=== PATIENT | male | born 1965 | race American Indian/Alaskan Native ===

== ENCOUNTER 2017-01-04 10:08 | Inpatient (IN) | payer BC, OTHER ==
[2017-01-04 11:43] LABS: Hematocrit 36.5 % (35.5-45.6); Hemoglobin 12.3 gm/dl (11.8-15.2); Mean Corpuscular HGB Conc 34 % (32-34); Mean Corpuscular Hemoglobin 31 pg (28-32); Mean Corpuscular Volume 92 fl (84-94); Platelet Count 112 K/mm3 (140-440); Red Blood Count 3.95 M/mm3 (3.65-5.03); Red Cell Distribution Width 14.7 % (13.2-15.2); White Blood Count 2.6 K/mm3 (4.5-11.0)
[2017-01-04 12:03] LABS: Anion Gap 15 mmol/L; Blood Urea Nitrogen 11 mg/dL (9-20); Carbon Dioxide 25 mmol/L (22-30); Chloride 101.8 mmol/L (98-107); Glucose 261 mg/dL (75-100); Potassium 4.6 mmol/L (3.6-5.0); Sodium 137 mmol/L (137-145)
--- NOTE | 2017-01-04 12:56 | Emergency Department Report ---
ED General Adult HPI - General Chief complaint: Weakness Stated complaint: AMS Time Seen by Provider: 01/04/17 12:54 Source: family, EMS Mode of arrival: Stretcher Limitations: No Limitations - History of Present Illness Initial comments: Patient presents to the emergency department with vague complaints. He states he was seen in [place] and told he was cirrhotic and admitted to the hospital there. It appears that the patient does have alcoholic cirrhosis. He states that he is weak and that he has lost weight over the last year perhaps 30 pounds. He does not report any recent signs of GI bleeding. He denies fever or chills. He does not complain of nausea. He is here with his who states that he was told that he had something in the back of his brain on a CAT scan. He does admit to continued alcohol abuse stating "I like my Chika". -: Gradual, month(s) Severity scale (0 -10): 0 Improves with: none Worsens with: none Associated Symptoms: weakness Treatments Prior to Arrival: none - Related Data Allergies Allergy/AdvReac Type Severity Reaction Status Date / Time No Known Allergies Allergy Unverified 01/04/17 11:10 ED Review of Systems ROS: Stated complaint: AMS Other details as noted in HPI Constitutional: weakness. denies: chills, fever Eyes: denies: eye pain, eye discharge, vision change ENT: denies: ear pain, throat pain Respiratory: denies: cough, shortness of breath, wheezing Cardiovascular: denies: chest pain, palpitations Endocrine: no symptoms reported Gastrointestinal: denies: abdominal pain, nausea, diarrhea Genitourinary: denies: urgency, dysuria Musculoskeletal: denies: back pain, joint swelling, arthralgia Skin: denies: rash, lesions Neurological: denies: headache, weakness, paresthesias Psychiatric: denies: anxiety, depression Hematological/Lymphatic: denies: easy bleeding, easy bruising ED Past Medical Hx - Past Medical History Previous Medical History?: Yes Hx Diabetes: Yes - Surgical History Past Surgical History?: No - Social History Smoking Status: Current Some Day Smoker Substance Use Type: Alcohol ED Physical Exam - General Limitations: No Limitations General appearance: alert, in no apparent distress - Head Head exam: Present: atraumatic, normocephalic - Eye Eye exam: Present: normal appearance, PERRL, EOMI. Absent: scleral icterus - ENT ENT exam: Present: normal exam, mucous membranes moist - Neck Neck exam: Present: normal inspection. Absent: tenderness, meningismus - Respiratory Respiratory exam: Present: normal lung sounds bilaterally. Absent: respiratory distress - Cardiovascular Cardiovascular Exam: Present: regular rate, normal rhythm. Absent: systolic murmur, diastolic murmur, rubs, gallop - GI/Abdominal GI/Abdominal exam: Present: soft, normal bowel sounds. Absent: distended, tenderness, guarding, rebound, rigid - Rectal Rectal exam: Present: deferred - Extremities Exam Extremities exam: Present: normal inspection - Back Exam Back exam: Present: normal inspection - Neurological Exam Neurological exam: Present: alert, oriented X3, CN II-XII intact, other (no nystagmus cerebellar testing was adequate. Generalized weakness. No drift.). Absent: motor sensory deficit - Psychiatric Psychiatric exam: Present: anxious, flat affect - Skin Skin exam: Present: warm, dry, intact, normal color. Absent: rash ED Course Vital Signs 01/04/17 01/04/17 01/04/17 10:53 11:00 11:01 Temperature 97.6 F Pulse Rate 102 H Respiratory 18 Rate Blood Pressure 100/72 132/93 Blood Pressure 132/93 [Left] O2 Sat by Pulse 100 99 100 Oximetry 01/04/17 11:09 Temperature Pulse Rate 99 H Respiratory Rate Blood Pressure Blood Pressure [Left] O2 Sat by Pulse Oximetry - Reevaluation(s) Reevaluation #1: And "banana bag" was ordered. Magnesium replacement. Case was referred to the hospitalist service for further care and evaluation. The patient is neutropenic but there is no source of infection found or any fever or signs of systemic immune response. Antibiotics are withheld at this point. 01/04/17 15:23 ED Medical Decision Making - Lab Data Result diagrams: 01/04/17 11:28 01/04/17 11:28 Laboratory Results - last 24 hr 01/04/17 01/04/17 11:28 11:28 WBC 2.6 L RBC 3.95 Hgb 12.3 Hct 36.5 MCV 92 MCH 31 MCHC 34 RDW 14.7 Plt Count 112 L Lymph % (Auto) Missile Pad Mechanic Seg Neutrophils % Missile Pad Mechanic Sodium 137 Potassium 4.6 Chloride 101.8 Carbon Dioxide 25 Anion Gap 15 BUN 11 Creatinine 0.5 L Estimated GFR > 60 BUN/Creatinine Ratio 22.00 Glucose 261 H Calcium 8.0 L - Radiology Data Radiology results: report reviewed interpreted by me: Chest X ray no acute process. CT the head process. Critical care attestation.: If time is entered above; I have spent that time in minutes in the direct care of this critically ill patient, excluding procedure time. ED Disposition Clinical Impression: Hyperglycemia due to type 1 diabetes mellitus, Thrombocytopenia, Hypomagnesemia Neutropenia Qualifiers: Neutropenia type: unspecified Qualified Code(s): D70.9 - Neutropenia, unspecified Cirrhosis Qualifiers: Hepatic cirrhosis type: alcoholic cirrhosis Ascites presence: without ascites Qualified Code(s): K70.30 - Alcoholic cirrhosis of liver without ascites Disposition: OP ADMITTED IP TO THIS HOSP Is pt being admited?: Yes Does the pt Need Aspirin: No (risk of bleeding) Condition: Stable Instructions: Diabetes Mellitus Type 2 in Adults (ED) Referrals: PRIMARY CARE, [Primary Care Provider] - 3-5 Days Time of Disposition: 15:27
[2017-01-04 13:34] LABS: Basophils % (Manual) 0 % (0.0-1.8); Blastocytes % (Manual) 0 %
[2017-01-04 13:37] LABS: Platelet Estimate Appears Decreased; Schistocytes Rare
[2017-01-04 13:40] LABS: Diff Status Complete
--- NOTE | 2017-01-04 13:47 | XRay Report ---
PORTABLE CHEST: An AP portable view of the chest demonstrates a normal cardiac contour considering the limits of this technique. The lungs are clear with no evidence of infiltrate, fluid or failure. IMPRESSION: Normal portable chest.
[2017-01-04 13:57] LABS: Creatine Kinase MB 1.9 ng/mL (0.0-4.0); INR 1.14 (0.87-1.13); Partial Thromboplastin Time 27.7 Sec. (24.2-36.6)
[2017-01-04 13:59] LABS: Alanine Aminotransferase 50 units/L (7-56); Albumin 3.7 g/dL (3.9-5); Alkaline Phosphatase 209 units/L (35-129); Bilirubin,Total 0.5 mg/dL (0.1-1.2); Lipase 13 units/L (13-60); Magnesium 1.6 mg/dL (1.7-2.3); Total Protein 7.3 g/dL (6.3-8.2)
[2017-01-04] MEDS ORDERED: VITAMIN B-1 100 MG, FOLVITE 1 MG, INFUVITE 10 ML in NACL 0.9% 1000 ML 1,000 ML IV ONE (14:00)
[2017-01-04 14:16] LABS: Bilirubin,Direct < 0.2 mg/dL (0-0.2)
--- NOTE | 2017-01-04 14:24 | Cat Scan Report ---
CT HEAD WITHOUT CONTRAST INDICATION: Altered mental status. COMPARISON: None similar. FINDINGS: Noncontrast head CT demonstrates symmetric, age-appropriate ventricles and sulci without acute or recent infarct, hemorrhage, mass effect or midline shift. Minimal, benign bilateral basal ganglia calcifications. No abnormal extra-axial fluid collections. Posterior fossa structures and basilar cisterns appear within normal limits. Some streak artifact from left earring. Symmetric eye globes. Clear paranasal sinuses and mastoid air cells. Intact calvarium. Normal overlying scalp soft tissues. Mild atherosclerotic internal carotid artery calcifications. CONCLUSION: No acute intracranial CT abnormality, as described. Thank you for the opportunity to participate in this patient's care.
[2017-01-04] MEDS ORDERED: MAGNESIUM SULFATE 2GM/50ML 2 GM/50 ML BAG IV ONE (15:22)
--- NOTE | 2017-01-04 15:46 | Admit Criteria Form ---
Admission Criteria Documentation: LIVER DISEASE COMPLICATIONS Clinical Indications for Admission to Inpatient Care (Place 'X' for any and all applicable criteria): Admission is indicated for patient with ANY ONE of the following(1)(2)(3)(4): [X]I. Inpatient admission required rather than observation care because of ANY ONE of the following: [ ]a) Hemodynamic instability that is severe or persistent [ ]b) Severe electrolyte abnormalities requiring inpatient care [ ]c) Respiratory compromise that is severe or persistent [ ]d) Coagulation abnormal that is severe or persistent [ ]e) Severe pain requiring acute inpatient management [ ]f) Renal insufficiency that is severe or worsening [ ]g) Metabolic abnormalities (e.g., vomiting, hypoglycemia, acidosis) that are severe or persistent [ ]h) Hypovolemia or hypervolemia that is severe or persistent [ ]i) Absent bowel sounds with complete ileus(2) [ ]j) Signs of intestinal obstruction or peritonitis[A] [ ]k) IV fluid to replace significant ongoing losses (>3 L/m2 per day) [ ]l) Continuous IV infusion of anticoagulation, platelet inhibitor, vasoactive, or antiarrhythmic medication [ ]m) Percutaneous or open drainage (e.g., abscess, biliary tract) procedures [ ]n) Parenteral nutrition regimen that must be implemented on inpatient basis [X]o) Other condition treatment or monitoring requiring inpatient admission [ ]II. Infected hepatic hydrothorax (eg, empyema) [ ]III. Hepatorenal syndrome (eg, elevated. creatinine with adequate volume status and negative evaluation for other cause)(8) [ ]IV. Spontaneous bacterial peritonitis [ ]V. Suspected infected ascites as indicated by ANY ONE of the following: [ ]a) Temp >100 degrees F (37.8 C ) [ ]b) High WBC count [ ]c) Abdominal pain or tenderness not relieved by paracentesis [ ]. New-onset or worsening hepatic encephalopathy(7) [ ]VII. Suspected fulminant hepatic failure (e.g., acute coagulopathy with hepatic encephalopathy or acute elevation of hepatic transaminases to more than 15 times baseline)(4) [ ]VIII. Acute hepatitis (e.g., ALT and AST at least 3 times baseline) with coagulopathy or severe jaundice as indicated by ANY ONE of the following(9)(10): [ ]a) Bilirubin >20 mg/dL (342 moles/L)(11) [ ]b) Acute elevation of PT to >50% above normal or INR >1.5 [ ] IX. Treatment of injury from hepatotoxin (e.g., acetaminophen) that requires inpatient monitoring [ ] X. Acute fatty liver of Extended stay beyond goal length of stay may be needed for(3)(7): [ ]a) Hepatorenal syndrome [ ]b) Severe or persistent hepatic encephalopathy [ ]c) Renal failure due to other causes associated with cirrhosis (e.g., hypovolemia) [ ]d) Severe or persistent coagulation abnormalities [ ]e) Refractory ascites, volume, or electrolyte abnormality [ ]f) Severe or persistent gastroesophageal bleeding [ ]g) Severe infectious or hepatotoxin-induced hepatitis (eg, acetaminophen) [ ]h) Hemodynamic instability that is severe or persistent The original [facility] content created by [employer] has been revised. The portions of the content which have been revised are identified through the use of italic text or in bold, and [facility] has neither reviewed nor approved the modified material. All other unmodified content is copyright [facility]. Please see references footnoted in the original [facility] [facility] Admission Criteria Met: Yes
[2017-01-04] MEDS ORDERED: NACL 0.9% 1000 ML 1,000 ML ONE (20:04)
[2017-01-04] MEDS ORDERED: NACL 0.9% 1000 ML 1,000 ML IV ONE (20:19)
[2017-01-04] MEDS ORDERED: AMBIEN PO PRN (21:02)
[2017-01-04] MEDS ORDERED: TYLENOL PO PRN (21:02)
[2017-01-04] MEDS ORDERED: MILK OF MAGNESIA PO PRN (21:02)
[2017-01-04] MEDS ORDERED: DULCOLAX PR PRN (21:02)
[2017-01-04] MEDS ORDERED: ZOFRAN IV PRN (21:02)
[2017-01-04] MEDS ORDERED: DILAUDID IV PRN (21:02)
--- NOTE | 2017-01-04 21:02 | History and Physical Report ---
History of Present Illness Date of examination: 01/04/17 Date of admission: 01/04/17 Chief complaint: Gen weakness 1 week History of present illness: Patient presents to the emergency department with vague complaints. He states he was seen in [place] and told he was cirrhotic and admitted to the hospital there. It appears that the patient does have alcoholic cirrhosis. He states that he is weak and that he has lost weight over the last year perhaps 30 pounds. He does not report any recent signs of GI bleeding. He denies fever or chills. He does not complain of nausea. He is here with his who states that he was told that he had something in the back of his brain on a CAT scan. He does admit to continued alcohol abuse stating "I like my Chardonnay". Past History Past Medical History: diabetes, hypertension Past Surgical History: No surgical history Social history: smoking, alcohol abuse (Bottle of Chardonnay) Medications and Allergies Allergies Allergy/AdvReac Type Severity Reaction Status Date / Time No Known Allergies Allergy Verified 01/04/17 15:56 Home Medications Medication Instructions Recorded Confirmed Last Taken Type Unobtainable 01/04/17 01/04/17 Unknown History Active Meds: Active Medications Sodium Chloride (Nacl 0.9% 1000 Ml) 1,000 mls @ 999 mls/hr IV BOLUS ONE Stop: 01/04/17 21:19 Last Admin: 01/04/17 20:29 Dose: 999 mls/hr Review of Systems Constitutional: no weight loss, no weight gain Ears, nose, mouth and throat: no ear pain, no ear discharge, no tinnitis, no decreased hearing, no nose pain Cardiovascular: no chest pain, no orthopnea, no palpitations, no rapid/ irregular heart beat, no edema, no syncope, no lightheadedness, no shortness of breath Respiratory: no dyspnea on exertion, no congestion Gastrointestinal: nausea, no abdominal pain, no vomiting, no diarrhea, no constipation, no change in bowel habits, no hematemesis, no coffee ground emesis Genitourinary Male: no dysuria, no hematuria, no flank pain, no discharge, no urinary frequency, no urinary hesitancy, no nocturia, no incontinence, no erectile dysfunction, no genital pain Musculoskeletal: no neck stiffness, no neck pain Integumentary: no rash, no pruritis, no redness, no sores, no wounds, no jaundice, no boils, no blisters Neurological: no seizures, no syncope Psychiatric: anxiety, depression Endocrine: no cold intolerance, no heat intolerance, no polyphagia, no excessive thirst, no polydipsia, no polyuria, no nocturia Hematologic/Lymphatic: no easy bruising, no easy bleeding Allergic/Immunologic: no urticaria, no allergic rhinitis, no wheezing Exam - Constitutional Vitals: Temp Pulse Resp BP Pulse Ox 97.6 F 78 14 116/74 99 01/04/17 11:01 01/04/17 19:45 01/04/17 19:45 01/04/17 19:45 01/04/17 19:45 General appearance: Present: no acute distress, well-nourished - EENT Eyes: Present: PERRL ENT: hearing intact, clear oral mucosa - Neck Neck: Present: supple, normal ROM - Respiratory Respiratory effort: normal Respiratory: bilateral: CTA - Cardiovascular Rhythm: regular Heart Sounds: Present: S1 & S2. Absent: rub, click - Extremities Extremities: pulses symmetrical, No edema Peripheral Pulses: within normal limits - Abdominal General gastrointestinal: Present: soft, non-tender, non-distended, normal bowel sounds Male genitourinary: Present: normal - Integumentary Integumentary: Present: clear, warm, dry - Musculoskeletal Musculoskeletal: gait normal, strength equal bilaterally - Psychiatric Psychiatric: appropriate mood/affect, intact judgment & insight - Neurologic Neurologic: CNII-XII intact, moves all extremities - Allied Health Allied health notes reviewed: nursing, case management Results - Labs CBC & Chem 7: 01/05/17 06:58 01/05/17 06:58 Labs: Laboratory Last Values WBC 2.6 K/mm3 (4.5-11.0) L 01/04/17 11:28 RBC 3.95 M/mm3 (3.65-5.03) 01/04/17 11:28 Hgb 12.3 gm/dl (11.8-15.2) 01/04/17 11:28 Hct 36.5 % (35.5-45.6) 01/04/17 11:28 MCV 92 fl (84-94) 01/04/17 11:28 MCH 31 pg (28-32) 01/04/17 11:28 MCHC 34 % (32-34) 01/04/17 11:28 RDW 14.7 % (13.2-15.2) 01/04/17 11:28 Plt Count 112 K/mm3 (140-440) L 01/04/17 11:28 Lymph % (Auto) Dross Puller 01/04/17 11:28 Add Manual Diff Complete 01/04/17 11:28 Total Counted 50 01/04/17 11:28 Seg Neutrophils % Dross Puller 01/04/17 11:28 Seg Neuts % (Manual) 24.0 % (40.0-70.0) L 01/04/17 11:28 Band Neutrophils % 0 % 01/04/17 11:28 Lymphocytes % (Manual) 64.0 % (13.4-35.0) H 01/04/17 11:28 Reactive Lymphs % (Man) 0 % 01/04/17 11:28 Monocytes % (Manual) 10.0 % (0.0-7.3) H 01/04/17 11:28 Eosinophils % (Manual) 2.0 % (0.0-4.3) 01/04/17 11:28 Basophils % (Manual) 0 % (0.0-1.8) 01/04/17 11:28 Metamyelocytes % 0 % 01/04/17 11:28 Myelocytes % 0 % 01/04/17 11:28 Promyelocytes % 0 % 01/04/17 11:28 Blast Cells % 0 % 01/04/17 11:28 Nucleated RBC % Not Reportable 01/04/17 11:28 Seg Neutrophils # Man 0.6 K/mm3 (1.8-7.7) L 01/04/17 11:28 Band Neutrophils # 0.0 K/mm3 01/04/17 11:28 Lymphocytes # (Manual) 1.7 K/mm3 (1.2-5.4) 01/04/17 11:28 Abs React Lymphs (Man) 0.0 K/mm3 01/04/17 11:28 Monocytes # (Manual) 0.3 K/mm3 (0.0-0.8) 01/04/17 11:28 Eosinophils # (Manual) 0.1 K/mm3 (0.0-0.4) 01/04/17 11:28 Basophils # (Manual) 0.0 K/mm3 (0.0-0.1) 01/04/17 11:28 Metamyelocytes # 0.0 K/mm3 01/04/17 11:28 Myelocytes # 0.0 K/mm3 01/04/17 11:28 Promyelocytes # 0.0 K/mm3 01/04/17 11:28 Blast Cells # 0.0 K/mm3 01/04/17 11:28 Pathologist Review 01/04/17 11:28 WBC Morphology Not Reportable 01/04/17 11:28 Hypersegmented Neuts Not Reportable 01/04/17 11:28 Hyposegmented Neuts Not Reportable 01/04/17 11:28 Hypogranular Neuts Not Reportable 01/04/17 11:28 Smudge Cells Dross Puller 01/04/17 11:28 Toxic Granulation Not Reportable 01/04/17 11:28 Toxic Vacuolation Not Reportable 01/04/17 11:28 Dohle Bodies Not Reportable 01/04/17 11:28 Pelger-Huet Anomaly Not Reportable 01/04/17 11:28 Jaxson Rods Not Reportable 01/04/17 11:28 Platelet Estimate Appears decreased 01/04/17 11:28 Clumped Platelets Not Reportable 01/04/17 11:28 Plt Clumps, EDTA Not Reportable 01/04/17 11:28 Large Platelets Not Reportable 01/04/17 11:28 Giant Platelets Not Reportable 01/04/17 11:28 Platelet Satelliting Not Reportable 01/04/17 11:28 Plt Morphology Comment Not Reportable 01/04/17 11:28 RBC Morphology Not Reportable 01/04/17 11:28 Dimorphic RBCs Not Reportable 01/04/17 11:28 Polychromasia Not Reportable 01/04/17 11:28 Hypochromasia Not Reportable 01/04/17 11:28 Poikilocytosis Dross Puller 01/04/17 11:28 Anisocytosis Not Reportable 01/04/17 11:28 Microcytosis Not Reportable 01/04/17 11:28 Macrocytosis Not Reportable 01/04/17 11:28 Spherocytes Not Reportable 01/04/17 11:28 Pappenheimer Bodies Not Reportable 01/04/17 11:28 Sickle Cells Not Reportable 01/04/17 11:28 Target Cells Dross Puller 01/04/17 11:28 Tear Drop Cells Not Reportable 01/04/17 11:28 Ovalocytes Not Reportable 01/04/17 11:28 Helmet Cells Not Reportable 01/04/17 11:28 [place] Bodies Not Reportable 01/04/17 11:28 [place] Rings Not Reportable 01/04/17 11:28 [place] Cells Not Reportable 01/04/17 11:28 Bite Cells Not Reportable 01/04/17 11:28 Crenated Cell Not Reportable 01/04/17 11:28 Elliptocytes Not Reportable 01/04/17 11:28 Acanthocytes (Spur) Not Reportable 01/04/17 11:28 Rouleaux Not Reportable 01/04/17 11:28 Hemoglobin C Crystals Not Reportable 01/04/17 11:28 Schistocytes Rare 01/04/17 11:28 Malaria parasites Not Reportable 01/04/17 11:28 Dioni Bodies Not Reportable 01/04/17 11:28 Hem Pathologist Commnt Sent to pathology 01/04/17 11:28 PT 14.5 Sec. (12.2-14.9) 01/04/17 13:20 INR 1.14 (0.87-1.13) H 01/04/17 13:20 APTT 27.7 Sec. (24.2-36.6) 01/04/17 13:20 Sodium 137 mmol/L (137-145) 01/04/17 11:28 Potassium 4.6 mmol/L (3.6-5.0) 01/04/17 11:28 Chloride 101.8 mmol/L (98-107) 01/04/17 11:28 Carbon Dioxide 25 mmol/L (22-30) 01/04/17 11:28 Anion Gap 15 mmol/L 01/04/17 11:28 BUN 11 mg/dL (9-20) 01/04/17 11:28 Creatinine 0.5 mg/dL (0.8-1.5) L 01/04/17 11:28 Estimated GFR > 60 ml/min 01/04/17 11:28 BUN/Creatinine Ratio 22.00 % 01/04/17 11:28 Glucose 261 mg/dL (75-100) H 01/04/17 11:28 POC Glucose > 500 (70-105) H 01/04/17 20:02 Lactic Acid 1.3 mmol/L (0.7-2.0) 01/04/17 13:20 Calcium 8.0 mg/dL (8.4-10.2) L 01/04/17 11:28 Magnesium 1.6 mg/dL (1.7-2.3) L 01/04/17 13:20 Total Bilirubin 0.5 mg/dL (0.1-1.2) 01/04/17 13:20 Direct Bilirubin < 0.2 mg/dL (0-0.2) 01/04/17 13:20 AST 54 units/L (5-40) H 01/04/17 13:20 ALT 50 units/L (7-56) 01/04/17 13:20 Alkaline Phosphatase 209 units/L (35-129) H 01/04/17 13:20 Ammonia 40.0 umol/L (25-60) 01/04/17 13:20 Total Creatine Kinase 65 units/L (55-170) 01/04/17 13:20 CK-MB (CK-2) 1.9 ng/mL (0.0-4.0) 01/04/17 13:20 CK-MB (CK-2) Rel Index 2.9 (0-4) 01/04/17 13:20 NT-Pro-B Natriuret Pep 49.71 pg/mL (0-900) 01/04/17 13:20 Total Protein 7.3 g/dL (6.3-8.2) 01/04/17 13:20 Albumin 3.7 g/dL (3.9-5) L 01/04/17 13:20 Albumin/Globulin Ratio 1.0 % 01/04/17 13:20 Lipase 13 units/L (13-60) 01/04/17 13:20 Plasma/Serum Alcohol 0.33 gm% (0-0.07) H 01/04/17 13:20 Short CBC 01/05/17 Range/Units 06:58 WBC 2.9 L (4.5-11.0) K/mm3 Hgb 10.7 L (11.8-15.2) gm/dl Hct 32.3 L (35.5-45.6) % Plt Count 103 L (140-440) K/mm3 BMP 01/05/17 06:58 Sodium 138 Potassium 3.5 L D Chloride 100.5 Carbon Dioxide 22 BUN 11 Creatinine 0.4 L Glucose 217 H Calcium 7.7 L Cardiac Enzymes 01/04/17 Range/Units 13:20 Total Creatine Kinase 65 (55-170) units/L CK-MB (CK-2) 1.9 (0.0-4.0) ng/mL Liver Function 01/04/17 01/05/17 Range/Units 13:20 06:58 Total Bilirubin 0.5 0.4 (0.1-1.2) mg/dL Direct Bilirubin < 0.2 (0-0.2) mg/dL AST 54 H 68 H (5-40) units/L ALT 50 44 (7-56) units/L Alkaline Phosphatase 209 H 160 H (35-129) units/L Albumin 3.7 L 3.0 L (3.9-5) g/dL Assessment and Plan Advance Directives: Yes (Full code) VTE prophylaxis?: Chemical Plan of care discussed with patient/family: Yes - Patient Problems (1) Pancytopenia Current Visit: Yes Status: Acute Plan to address problem: Sec to Etoh dependence (2) EtOH dependence Current Visit: Yes Status: Chronic Qualifiers: Substance use status: with intoxication Complication of substance-induced condition: C Plan to address problem: CIWA protocol and iv fluids (3) New onset type 2 diabetes mellitus Current Visit: Yes Status: Acute Plan to address problem: Start on Glimepride 1 mg po qd Diabetes education (4) Transaminitis Current Visit: Yes Status: Acute Plan to address problem: Sec to EToh Needs Detox consult requested (5) DVT prophylaxis Current Visit: Yes Status: Acute Plan to address problem: on Lovenox
[2017-01-04] MEDS ORDERED: ATIVAN PO PRN ×2 (21:09)
[2017-01-04] MEDS ORDERED: LIBRIUM PO PRN (21:09)
[2017-01-04] MEDS ORDERED: ATIVAN IV PRN ×3 (21:09)
[2017-01-04] MEDS ORDERED: HALDOL IV PRN (21:09)
[2017-01-04] MEDS ORDERED: 1: FOLVITE 1 MG, INFUVITE 10 ML, VITAMIN B-1 100 MG in NACL 0.9% 1000 ML 988.8 ML 2: NA IV SCH (22:00)
[2017-01-04] MEDS ORDERED: LEVEMIR SUB-Q SCH (23:00)
[2017-01-04] MEDS: VITAMIN B-1 100 MG, FOLVITE 1 MG, INFUVITE 10 ML in NACL 0.9% 1000 ML 1,000 ML IV SCH (23:41)
[2017-01-04] MEDS: NOVOLOG SUB-Q SCH ×2 (23:44→23:45)
[2017-01-05 00:08] LABS: Magnesium 1.9 mg/dL (1.7-2.3); Phosphorous 2.8 mg/dL (2.5-4.5)
[2017-01-05] MEDS ORDERED: D50W (25GM) IV ONE (06:46)
[2017-01-05] MEDS: NOVOLOG SUB-Q SCH ×6 (07:30→16:45)
[2017-01-05 07:38] LABS: Basophils % (Auto) 0.6 % (0.0-1.8); Eosinophils % (Auto) 0.3 % (0.0-4.3); Hematocrit 32.3 % (35.5-45.6); Hemoglobin 10.7 gm/dl (11.8-15.2); Mean Corpuscular HGB Conc 33 % (32-34); Mean Corpuscular Hemoglobin 31 pg (28-32); Mean Corpuscular Volume 93 fl (84-94); Platelet Count 103 K/mm3 (140-440); Red Blood Count 3.45 M/mm3 (3.65-5.03); Red Cell Distribution Width 14.7 % (13.2-15.2); White Blood Count 2.9 K/mm3 (4.5-11.0)
[2017-01-05 07:42] LABS: Alanine Aminotransferase 44 units/L (7-56); Alkaline Phosphatase 160 units/L (35-129); Anion Gap 19 mmol/L; Bilirubin,Total 0.4 mg/dL (0.1-1.2); Blood Urea Nitrogen 11 mg/dL (9-20); Calcium 7.7 mg/dL (8.4-10.2); Carbon Dioxide 22 mmol/L (22-30); Chloride 100.5 mmol/L (98-107); Glucose 217 mg/dL (75-100); Potassium 3.5 mmol/L (3.6-5.0); Sodium 138 mmol/L (137-145)
[2017-01-05] MEDS ORDERED: LOVENOX SUB-Q SCH (10:00)
[2017-01-05] MEDS ORDERED: FLUARIX QUAD 2016-2017(36 MOS+) IM ONE (12:00)
[2017-01-05] MEDS ORDERED: PNEUMOVAX 23 IM ONE (12:00)
[2017-01-05] MEDS ORDERED: VITAMIN B-1 100 MG, FOLVITE 1 MG, INFUVITE 10 ML in NACL 0.9% 1000 ML 1,000 ML IV ONE (13:40)
[2017-01-05 16:01] LABS: HIV-1 Antigen p24 Non React (Non React); HIVR-1/2 Ab Non React (Non React)
--- NOTE | 2017-01-05 16:01 | Progress Note ---
Assessment and Plan Assessment and plan: 51 y/o male with h/o alcohol abuse presented with generalized weakness, in the ER BG noted to be >500 (1) Pancytopenia Current Visit: Yes Status: Acute Plan to address problem: Sec to Etoh dependence cont to monitor (2) EtOH dependence Current Visit: Yes Status: Chronic Qualifiers: Substance use status: with intoxication Complication of substance-induced condition: C Plan to address problem: CIWA protocol and iv fluids (3) New onset type 2 diabetes mellitus Current Visit: Yes Status: Acute Plan to address problem: Started on Glimepride 1 mg po qd Diabetes education, check A1c (4) Transaminitis Current Visit: Yes Status: Acute Plan to address problem: Sec to EToh Needs Detox MH consult requested (5) DVT prophylaxis Current Visit: Yes Status: Acute Plan to address problem: on Lovenox History Interval history: Pt seen and examined, No acute event o/n tolerating diet, discussed plan at bed side Hospitalist Physical - Constitutional Vitals: Temp Pulse Resp BP Pulse Ox 98.2 F 91 H 18 131/88 99 01/05/17 15:27 01/05/17 15:27 01/05/17 15:27 01/05/17 15:27 01/05/17 15:27 General appearance: Present: no acute distress, well-nourished - EENT Eyes: Present: PERRL, EOM intact ENT: clear oral mucosa, dentition normal - Neck Neck: Present: supple, normal ROM - Respiratory Respiratory: bilateral: CTA - Cardiovascular Rhythm: regular Heart Sounds: Present: S1 & S2 - Extremities Extremities: no ischemia, No edema Peripheral Pulses: within normal limits - Abdominal General gastrointestinal: soft, non-tender, non-distended - Integumentary Integumentary: Present: warm, dry - Psychiatric Psychiatric: appropriate mood/affect - Neurologic Neurologic: no focal deficits Results - Labs CBC & Chem 7: 01/05/17 06:58 01/05/17 06:58 Labs: Laboratory Last Values WBC 2.9 K/mm3 (4.5-11.0) L 01/05/17 06:58 RBC 3.45 M/mm3 (3.65-5.03) L 01/05/17 06:58 Hgb 10.7 gm/dl (11.8-15.2) L 01/05/17 06:58 Hct 32.3 % (35.5-45.6) L 01/05/17 06:58 MCV 93 fl (84-94) 01/05/17 06:58 MCH 31 pg (28-32) 01/05/17 06:58 MCHC 33 % (32-34) 01/05/17 06:58 RDW 14.7 % (13.2-15.2) 01/05/17 06:58 Plt Count 103 K/mm3 (140-440) L 01/05/17 06:58 Lymph % (Auto) 32.6 % (13.4-35.0) 01/05/17 06:58 [place] % (Auto) 12.8 % (0.0-7.3) H 01/05/17 06:58 Eos % (Auto) 0.3 % (0.0-4.3) 01/05/17 06:58 Baso % (Auto) 0.6 % (0.0-1.8) 01/05/17 06:58 Lymph # 1.0 K/mm3 (1.2-5.4) L 01/05/17 06:58 [place] # 0.4 K/mm3 (0.0-0.8) 01/05/17 06:58 Eos # 0.0 K/mm3 (0.0-0.4) 01/05/17 06:58 Baso # 0.0 K/mm3 (0.0-0.1) 01/05/17 06:58 Add Manual Diff Complete 01/04/17 11:28 Total Counted 50 01/04/17 11:28 Seg Neutrophils % 53.7 % (40.0-70.0) 01/05/17 06:58 Seg Neuts % (Manual) 24.0 % (40.0-70.0) L 01/04/17 11:28 Band Neutrophils % 0 % 01/04/17 11:28 Lymphocytes % (Manual) 64.0 % (13.4-35.0) H 01/04/17 11:28 Reactive Lymphs % (Man) 0 % 01/04/17 11:28 Monocytes % (Manual) 10.0 % (0.0-7.3) H 01/04/17 11:28 Eosinophils % (Manual) 2.0 % (0.0-4.3) 01/04/17 11:28 Basophils % (Manual) 0 % (0.0-1.8) 01/04/17 11:28 Metamyelocytes % 0 % 01/04/17 11:28 Myelocytes % 0 % 01/04/17 11:28 Promyelocytes % 0 % 01/04/17 11:28 Blast Cells % 0 % 01/04/17 11:28 Nucleated RBC % Not Reportable 01/04/17 11:28 Seg Neutrophils # 1.6 K/mm3 (1.8-7.7) L 01/05/17 06:58 Seg Neutrophils # Man 0.6 K/mm3 (1.8-7.7) L 01/04/17 11:28 Band Neutrophils # 0.0 K/mm3 01/04/17 11:28 Lymphocytes # (Manual) 1.7 K/mm3 (1.2-5.4) 01/04/17 11:28 Abs React Lymphs (Man) 0.0 K/mm3 01/04/17 11:28 Monocytes # (Manual) 0.3 K/mm3 (0.0-0.8) 01/04/17 11:28 Eosinophils # (Manual) 0.1 K/mm3 (0.0-0.4) 01/04/17 11:28 Basophils # (Manual) 0.0 K/mm3 (0.0-0.1) 01/04/17 11:28 Metamyelocytes # 0.0 K/mm3 01/04/17 11:28 Myelocytes # 0.0 K/mm3 01/04/17 11:28 Promyelocytes # 0.0 K/mm3 01/04/17 11:28 Blast Cells # 0.0 K/mm3 01/04/17 11:28 Pathologist Review 01/04/17 11:28 WBC Morphology Not Reportable 01/04/17 11:28 Hypersegmented Neuts Not Reportable 01/04/17 11:28 Hyposegmented Neuts Not Reportable 01/04/17 11:28 Hypogranular Neuts Not Reportable 01/04/17 11:28 Smudge Cells Sensory Scientist 01/04/17 11:28 Toxic Granulation Not Reportable 01/04/17 11:28 Toxic Vacuolation Not Reportable 01/04/17 11:28 Dohle Bodies Not Reportable 01/04/17 11:28 Pelger-Huet Anomaly Not Reportable 01/04/17 11:28 Jaxson Rods Not Reportable 01/04/17 11:28 Platelet Estimate Appears decreased 01/04/17 11:28 Clumped Platelets Not Reportable 01/04/17 11:28 Plt Clumps, EDTA Not Reportable 01/04/17 11:28 Large Platelets Not Reportable 01/04/17 11:28 Giant Platelets Not Reportable 01/04/17 11:28 Platelet Satelliting Not Reportable 01/04/17 11:28 Plt Morphology Comment Not Reportable 01/04/17 11:28 RBC Morphology Not Reportable 01/04/17 11:28 Dimorphic RBCs Not Reportable 01/04/17 11:28 Polychromasia Not Reportable 01/04/17 11:28 Hypochromasia Not Reportable 01/04/17 11:28 Poikilocytosis Sensory Scientist 01/04/17 11:28 Anisocytosis Not Reportable 01/04/17 11:28 Microcytosis Not Reportable 01/04/17 11:28 Macrocytosis Not Reportable 01/04/17 11:28 Spherocytes Not Reportable 01/04/17 11:28 Pappenheimer Bodies Not Reportable 01/04/17 11:28 Sickle Cells Not Reportable 01/04/17 11:28 Target Cells Sensory Scientist 01/04/17 11:28 Tear Drop Cells Not Reportable 01/04/17 11:28 Ovalocytes Not Reportable 01/04/17 11:28 Helmet Cells Not Reportable 01/04/17 11:28 Su-[place] Bodies Not Reportable 01/04/17 11:28 [place] Rings Not Reportable 01/04/17 11:28 [place] Cells Not Reportable 01/04/17 11:28 Bite Cells Not Reportable 01/04/17 11:28 Crenated Cell Not Reportable 01/04/17 11:28 Elliptocytes Not Reportable 01/04/17 11:28 Acanthocytes (Spur) Not Reportable 01/04/17 11:28 Rouleaux Not Reportable 01/04/17 11:28 Hemoglobin C Crystals Not Reportable 01/04/17 11:28 Schistocytes Rare 01/04/17 11:28 Malaria parasites Not Reportable 01/04/17 11:28 Dioni Bodies Not Reportable 01/04/17 11:28 Hem Pathologist Commnt Sent to pathology 01/04/17 11:28 PT 14.5 Sec. (12.2-14.9) 01/04/17 13:20 INR 1.14 (0.87-1.13) H 01/04/17 13:20 APTT 27.7 Sec. (24.2-36.6) 01/04/17 13:20 Sodium 138 mmol/L (137-145) 01/05/17 06:58 Potassium 3.5 mmol/L (3.6-5.0) L D 01/05/17 06:58 Chloride 100.5 mmol/L (98-107) 01/05/17 06:58 Carbon Dioxide 22 mmol/L (22-30) 01/05/17 06:58 Anion Gap 19 mmol/L 01/05/17 06:58 BUN 11 mg/dL (9-20) 01/05/17 06:58 Creatinine 0.4 mg/dL (0.8-1.5) L 01/05/17 06:58 Estimated GFR > 60 ml/min 01/05/17 06:58 BUN/Creatinine Ratio 27.50 % 01/05/17 06:58 Glucose 217 mg/dL (75-100) H 01/05/17 06:58 POC Glucose 188 (70-105) H 01/05/17 11:20 Hemoglobin A1c 8.7 % (4-6) H 01/04/17 22:37 Lactic Acid 1.3 mmol/L (0.7-2.0) 01/04/17 13:20 Calcium 7.7 mg/dL (8.4-10.2) L 01/05/17 06:58 Phosphorus 2.8 mg/dL (2.5-4.5) 01/04/17 22:37 Magnesium 1.9 mg/dL (1.7-2.3) 01/04/17 22:37 Total Bilirubin 0.4 mg/dL (0.1-1.2) 01/05/17 06:58 Direct Bilirubin < 0.2 mg/dL (0-0.2) 01/04/17 13:20 AST 68 units/L (5-40) H 01/05/17 06:58 ALT 44 units/L (7-56) 01/05/17 06:58 Alkaline Phosphatase 160 units/L (35-129) H 01/05/17 06:58 Ammonia 27.0 umol/L (25-60) 01/04/17 22:37 Total Creatine Kinase 65 units/L (55-170) 01/04/17 13:20 CK-MB (CK-2) 1.9 ng/mL (0.0-4.0) 01/04/17 13:20 CK-MB (CK-2) Rel Index 2.9 (0-4) 01/04/17 13:20 NT-Pro-B Natriuret Pep 49.71 pg/mL (0-900) 01/04/17 13:20 Total Protein 6.0 g/dL (6.3-8.2) L 01/05/17 06:58 Albumin 3.0 g/dL (3.9-5) L 01/05/17 06:58 Albumin/Globulin Ratio 1.0 % 01/05/17 06:58 Lipase 17 units/L (13-60) 01/04/17 22:37 Plasma/Serum Alcohol 0.33 gm% (0-0.07) H 01/04/17 13:20
[2017-01-05] MEDS: LOVENOX SUB-Q SCH (16:41)
[2017-01-05] MEDS: AMARYL PO SCH (16:42)
[2017-01-06] MEDS: NOVOLOG SUB-Q SCH ×10 (01:06→23:21)
[2017-01-06] MEDS: NORCO 5/325 PO PRN ×3 (01:18→20:10)
[2017-01-06] MEDS: NACL 0.9% 1000 ML 1,000 ML IV SCH ×2 (02:01→21:31)
[2017-01-06] MEDS: VITAMIN B-1 100 MG, FOLVITE 1 MG, INFUVITE 10 ML in NACL 0.9% 1000 ML 1,000 ML IV SCH (06:38)
[2017-01-06] MEDS ORDERED: K-DUR PO ONE ×2 (10:00→19:24)
[2017-01-06] MEDS: AMARYL PO SCH (10:35)
[2017-01-06 10:57] LABS: Hematocrit 36.2 % (35.5-45.6); Hemoglobin 12.1 gm/dl (11.8-15.2); Mean Corpuscular HGB Conc 34 % (32-34); Mean Corpuscular Hemoglobin 31 pg (28-32); Mean Corpuscular Volume 93 fl (84-94); Red Blood Count 3.89 M/mm3 (3.65-5.03); Red Cell Distribution Width 14.3 % (13.2-15.2); White Blood Count 3.1 K/mm3 (4.5-11.0)
[2017-01-06 11:03] LABS: Anion Gap 16 mmol/L; Blood Urea Nitrogen 10 mg/dL (9-20); Calcium 8.5 mg/dL (8.4-10.2); Carbon Dioxide 27 mmol/L (22-30); Chloride 90.7 mmol/L (98-107); Glucose 362 mg/dL (75-100)
[2017-01-06 11:05] LABS: Potassium 2.9 mmol/L (3.6-5.0)
[2017-01-06 11:06] LABS: Sodium 131 mmol/L (137-145)
[2017-01-06 11:07] LABS: Platelet Count 95 K/mm3 (140-440)
[2017-01-06] MEDS: LOVENOX SUB-Q SCH (13:45)
[2017-01-06] MEDS: KCL 10MEQ/100ML 10 MEQ/100 ML BAG IV SCH ×4 (13:46→21:31)
--- NOTE | 2017-01-06 16:01 | Progress Note ---
Assessment and Plan Assessment and plan: 51 y/o male with h/o alcohol abuse presented with generalized weakness, in the ER BG noted to be >500 (1) Pancytopenia Current Visit: Yes Status: Acute Plan to address problem: Sec to Etoh dependence cont to monitor, stable (2) EtOH dependence Current Visit: Yes Status: Chronic Qualifiers: Substance use status: with intoxication Complication of substance-induced condition: C Plan to address problem: cont CIWA protocol and iv fluids (3) New onset type 2 diabetes mellitus Current Visit: Yes Status: Acute Plan to address problem: Started on Glimepride 1 mg po qd will add metformin Diabetes education, A1c 8.7 (4) Transaminitis Current Visit: Yes Status: Acute Plan to address problem: Sec to EToh Needs Detox MH consult requested (5) hypokalemia Current Visit: Yes Status: Acute Plan to address problem: replete with iv KCL (6) DVT prophylaxis Current Visit: Yes Status: Acute Plan to address problem: on Lovenox History Interval history: Pt seen and examined, No acute event o/n K level 2.9 this am tolerating diet, discussed plan at bed side Hospitalist Physical - Physical exam Narrative exam: General appearance: Present: no acute distress, well-nourished - EENT Eyes: Present: PERRL, EOM intact ENT: clear oral mucosa, dentition normal - Neck Neck: Present: supple, normal ROM - Respiratory Respiratory: bilateral: CTA - Cardiovascular Rhythm: regular Heart Sounds: Present: S1 & S2 - Extremities Extremities: no ischemia, No edema Peripheral Pulses: within normal limits - Abdominal General gastrointestinal: soft, non-tender, non-distended - Integumentary Integumentary: Present: warm, dry - Psychiatric Psychiatric: appropriate mood/affect - Neurologic Neurologic: no focal deficits - Constitutional Vitals: Temp Pulse Resp BP Pulse Ox 98.3 F 99 H 20 134/83 99 01/06/17 15:20 01/06/17 15:20 01/06/17 15:20 01/06/17 15:20 01/06/17 15:20 General appearance: Present: no acute distress, well-nourished Results - Labs CBC & Chem 7: 01/06/17 09:32 01/06/17 09:32 Labs: Laboratory Last Values WBC 3.1 K/mm3 (4.5-11.0) L 01/06/17 09:32 RBC 3.89 M/mm3 (3.65-5.03) 01/06/17 09:32 Hgb 12.1 gm/dl (11.8-15.2) 01/06/17 09:32 Hct 36.2 % (35.5-45.6) 01/06/17 09:32 MCV 93 fl (84-94) 01/06/17 09:32 MCH 31 pg (28-32) 01/06/17 09:32 MCHC 34 % (32-34) 01/06/17 09:32 RDW 14.3 % (13.2-15.2) 01/06/17 09:32 Plt Count 95 K/mm3 (140-440) L 01/06/17 09:32 Lymph % (Auto) 32.6 % (13.4-35.0) 01/05/17 06:58 [place] % (Auto) 12.8 % (0.0-7.3) H 01/05/17 06:58 Eos % (Auto) 0.3 % (0.0-4.3) 01/05/17 06:58 Baso % (Auto) 0.6 % (0.0-1.8) 01/05/17 06:58 Lymph # 1.0 K/mm3 (1.2-5.4) L 01/05/17 06:58 [place] # 0.4 K/mm3 (0.0-0.8) 01/05/17 06:58 Eos # 0.0 K/mm3 (0.0-0.4) 01/05/17 06:58 Baso # 0.0 K/mm3 (0.0-0.1) 01/05/17 06:58 Add Manual Diff Complete 01/04/17 11:28 Total Counted 50 01/04/17 11:28 Seg Neutrophils % 53.7 % (40.0-70.0) 01/05/17 06:58 Seg Neuts % (Manual) 24.0 % (40.0-70.0) L 01/04/17 11:28 Band Neutrophils % 0 % 01/04/17 11:28 Lymphocytes % (Manual) 64.0 % (13.4-35.0) H 01/04/17 11:28 Reactive Lymphs % (Man) 0 % 01/04/17 11:28 Monocytes % (Manual) 10.0 % (0.0-7.3) H 01/04/17 11:28 Eosinophils % (Manual) 2.0 % (0.0-4.3) 01/04/17 11:28 Basophils % (Manual) 0 % (0.0-1.8) 01/04/17 11:28 Metamyelocytes % 0 % 01/04/17 11:28 Myelocytes % 0 % 01/04/17 11:28 Promyelocytes % 0 % 01/04/17 11:28 Blast Cells % 0 % 01/04/17 11:28 Nucleated RBC % Not Reportable 01/04/17 11:28 Seg Neutrophils # 1.6 K/mm3 (1.8-7.7) L 01/05/17 06:58 Seg Neutrophils # Man 0.6 K/mm3 (1.8-7.7) L 01/04/17 11:28 Band Neutrophils # 0.0 K/mm3 01/04/17 11:28 Lymphocytes # (Manual) 1.7 K/mm3 (1.2-5.4) 01/04/17 11:28 Abs React Lymphs (Man) 0.0 K/mm3 01/04/17 11:28 Monocytes # (Manual) 0.3 K/mm3 (0.0-0.8) 01/04/17 11:28 Eosinophils # (Manual) 0.1 K/mm3 (0.0-0.4) 01/04/17 11:28 Basophils # (Manual) 0.0 K/mm3 (0.0-0.1) 01/04/17 11:28 Metamyelocytes # 0.0 K/mm3 01/04/17 11:28 Myelocytes # 0.0 K/mm3 01/04/17 11:28 Promyelocytes # 0.0 K/mm3 01/04/17 11:28 Blast Cells # 0.0 K/mm3 01/04/17 11:28 Pathologist Review 01/04/17 11:28 WBC Morphology Not Reportable 01/04/17 11:28 Hypersegmented Neuts Not Reportable 01/04/17 11:28 Hyposegmented Neuts Not Reportable 01/04/17 11:28 Hypogranular Neuts Not Reportable 01/04/17 11:28 Smudge Cells Therapy Assistant 01/04/17 11:28 Toxic Granulation Not Reportable 01/04/17 11:28 Toxic Vacuolation Not Reportable 01/04/17 11:28 Dohle Bodies Not Reportable 01/04/17 11:28 Pelger-Huet Anomaly Not Reportable 01/04/17 11:28 Ajxson Rods Not Reportable 01/04/17 11:28 Platelet Estimate Appears decreased 01/04/17 11:28 Clumped Platelets Not Reportable 01/04/17 11:28 Plt Clumps, EDTA Not Reportable 01/04/17 11:28 Large Platelets Not Reportable 01/04/17 11:28 Giant Platelets Not Reportable 01/04/17 11:28 Platelet Satelliting Not Reportable 01/04/17 11:28 Plt Morphology Comment Not Reportable 01/04/17 11:28 RBC Morphology Not Reportable 01/04/17 11:28 Dimorphic RBCs Not Reportable 01/04/17 11:28 Polychromasia Not Reportable 01/04/17 11:28 Hypochromasia Not Reportable 01/04/17 11:28 Poikilocytosis Therapy Assistant 01/04/17 11:28 Anisocytosis Not Reportable 01/04/17 11:28 Microcytosis Not Reportable 01/04/17 11:28 Macrocytosis Not Reportable 01/04/17 11:28 Spherocytes Not Reportable 01/04/17 11:28 Pappenheimer Bodies Not Reportable 01/04/17 11:28 Sickle Cells Not Reportable 01/04/17 11:28 Target Cells Therapy Assistant 01/04/17 11:28 Tear Drop Cells Not Reportable 01/04/17 11:28 Ovalocytes Not Reportable 01/04/17 11:28 Helmet Cells Not Reportable 01/04/17 11:28 Su-[employer] Bodies Not Reportable 01/04/17 11:28 [place] Rings Not Reportable 01/04/17 11:28 Bar Cells Not Reportable 01/04/17 11:28 Bite Cells Not Reportable 01/04/17 11:28 Crenated Cell Not Reportable 01/04/17 11:28 Elliptocytes Not Reportable 01/04/17 11:28 Acanthocytes (Spur) Not Reportable 01/04/17 11:28 Rouleaux Not Reportable 01/04/17 11:28 Hemoglobin C Crystals Not Reportable 01/04/17 11:28 Schistocytes Rare 01/04/17 11:28 Malaria parasites Not Reportable 01/04/17 11:28 Dioni Bodies Not Reportable 01/04/17 11:28 Hem Pathologist Commnt Sent to pathology 01/04/17 11:28 PT 14.5 Sec. (12.2-14.9) 01/04/17 13:20 INR 1.14 (0.87-1.13) H 01/04/17 13:20 APTT 27.7 Sec. (24.2-36.6) 01/04/17 13:20 Sodium 131 mmol/L (137-145) L D 01/06/17 09:32 Potassium 2.9 mmol/L (3.6-5.0) L* 01/06/17 09:32 Chloride 90.7 mmol/L (98-107) L 01/06/17 09:32 Carbon Dioxide 27 mmol/L (22-30) 01/06/17 09:32 Anion Gap 16 mmol/L 01/06/17 09:32 BUN 10 mg/dL (9-20) 01/06/17 09:32 Creatinine 0.4 mg/dL (0.8-1.5) L 01/06/17 09:32 Estimated GFR > 60 ml/min 01/06/17 09:32 BUN/Creatinine Ratio 25.00 % 01/06/17 09:32 Glucose 362 mg/dL (75-100) H 01/06/17 09:32 POC Glucose 256 (70-105) H 01/06/17 11:23 Hemoglobin A1c 8.7 % (4-6) H 01/04/17 22:37 Lactic Acid 1.3 mmol/L (0.7-2.0) 01/04/17 13:20 Calcium 8.5 mg/dL (8.4-10.2) 01/06/17 09:32 Phosphorus 2.8 mg/dL (2.5-4.5) 01/04/17 22:37 Magnesium 1.9 mg/dL (1.7-2.3) 01/04/17 22:37 Total Bilirubin 0.4 mg/dL (0.1-1.2) 01/05/17 06:58 Direct Bilirubin < 0.2 mg/dL (0-0.2) 01/04/17 13:20 AST 68 units/L (5-40) H 01/05/17 06:58 ALT 44 units/L (7-56) 01/05/17 06:58 Alkaline Phosphatase 160 units/L (35-129) H 01/05/17 06:58 Ammonia 27.0 umol/L (25-60) 01/04/17 22:37 Total Creatine Kinase 65 units/L (55-170) 01/04/17 13:20 CK-MB (CK-2) 1.9 ng/mL (0.0-4.0) 01/04/17 13:20 CK-MB (CK-2) Rel Index 2.9 (0-4) 01/04/17 13:20 NT-Pro-B Natriuret Pep 49.71 pg/mL (0-900) 01/04/17 13:20 Total Protein 6.0 g/dL (6.3-8.2) L 01/05/17 06:58 Albumin 3.0 g/dL (3.9-5) L 01/05/17 06:58 Albumin/Globulin Ratio 1.0 % 01/05/17 06:58 Lipase 17 units/L (13-60) 01/04/17 22:37 Plasma/Serum Alcohol 0.33 gm% (0-0.07) H 01/04/17 13:20 HIV 1&2 Antibody Rapid Non react (Non React) 01/05/17 14:53 HIV P24 Antigen Non react (Non React) 01/05/17 14:53
[2017-01-06] MEDS: GLUCOPHAGE PO SCH ×2 (17:38→19:36)
[2017-01-07] MEDS: KCL 10MEQ/100ML 10 MEQ/100 ML BAG IV SCH (00:34)
[2017-01-07] MEDS: VITAMIN B-1 100 MG, FOLVITE 1 MG, INFUVITE 10 ML in NACL 0.9% 1000 ML 1,000 ML IV SCH (01:19)
[2017-01-07 06:19] LABS: Anion Gap 15 mmol/L; Blood Urea Nitrogen 9 mg/dL (9-20); Calcium 8.8 mg/dL (8.4-10.2); Carbon Dioxide 26 mmol/L (22-30); Chloride 98.7 mmol/L (98-107); Glucose 239 mg/dL (75-100); Sodium 136 mmol/L (137-145)
[2017-01-07 06:55] LABS: Potassium 3.8 mmol/L (3.6-5.0)
[2017-01-07] MEDS: NOVOLOG SUB-Q SCH ×2 (07:46→07:47)
[2017-01-07] MEDS: AMARYL PO SCH (07:47)
[2017-01-07] MEDS: GLUCOPHAGE PO SCH (07:49)
[2017-01-07 08:14] VITALS: BP 129/85
--- NOTE | 2017-01-07 08:23 | Discharge Summary ---
Providers - Providers Date of Admission: 01/04/17 21:04 Date of discharge: 01/07/17 Attending physician: DENNYS DE LA ROSA 01/05/17 13:38 Consult to Mental Health [CONS] Routine Reason For Exam: Etoh dependence Place consult to:: Notified:: mildred Phone number called:: [phone] Was contact made?: Yes If yes, spoke with:: ismael Time called:: 14:20 01/05/17 14:02 Consult to Dietitian/Nutrition [CONS] Routine Physician Instructions: Reason For Exam: Reason for Consult: Nutrition Recommendations Reason for Consult: Diet education 01/06/17 15:36 Physical Therapy Evaluation and Treat [CONS] Routine Comment: Reason For Exam: Post fall with (L) hip pain. Primary care physician: W[employer]PER[employer] MANAGER Hospitalization Condition: Stable Hospital course: 51 y/o male with h/o alcohol abuse presented with generalized weakness, in the ER BG noted to be >500. He was placed on CIWA protocol, CXR was normal. CT head was unremarkable and hip XRY was normal. he was placed on insulin coverage, IV fluid, folate and thiamin. His BG level improved, didnot have any sign of alcohol withdrawl. he was discharged home in stable condition. Discharge diagnoses: (1) Pancytopenia Current Visit: Yes Status: Acute Plan to address problem: Sec to Etoh dependence, stable (2) EtOH dependence Current Visit: Yes Status: Chronic Qualifiers: Substance use status: with intoxication Complication of substance-induced condition: C Plan to address problem: s/p CIWA protocol and iv fluids Outpt rehab (3) New onset type 2 diabetes mellitus Current Visit: Yes Status: Acute Plan to address problem: Started on Glimepride 1 mg po qd and metformin provided Diabetes education, A1c 8.7 (4) Transaminitis Current Visit: Yes Status: Acute Plan to address problem: Sec to EToh, stable (5) hypokalemia Current Visit: Yes Status: Acute Plan to address problem: repleted with iv KCL, resolved Disposition: DISCHARGED TO HOME OR SELFCARE Time spent for discharge: 35 minutes Core Measure Documentation - Palliative Care Palliative Care/ Comfort Measures: Not Applicable - Core Measures Any of the following diagnoses?: none Exam - Physical Exam Narrative exam: General appearance: Present: no acute distress, well-nourished - EENT Eyes: Present: PERRL, EOM intact ENT: clear oral mucosa, dentition normal - Neck Neck: Present: supple, normal ROM - Respiratory Respiratory: bilateral: CTA - Cardiovascular Rhythm: regular Heart Sounds: Present: S1 & S2 - Extremities Extremities: no ischemia, No edema Peripheral Pulses: within normal limits - Abdominal General gastrointestinal: soft, non-tender, non-distended - Integumentary Integumentary: Present: warm, dry - Psychiatric Psychiatric: appropriate mood/affect - Neurologic Neurologic: no focal deficits - Constitutional Vitals: Temp Pulse Resp BP Pulse Ox 99.3 F 88 18 147/92 100 01/07/17 05:20 01/07/17 05:20 01/07/17 05:20 01/07/17 05:20 01/07/17 05:20 Plan Activity: advance as tolerated Weight Bearing Status: Weight Bear as Tolerated Diet: diabetic Follow up with: PRIMARY CARE, [Primary Care Provider] - 3-5 Days Prescriptions: Folic Acid [Folvite] 1 mg PO QDAY #30 tablet Glimepiride [Amaryl] 1 mg PO QDDIAB #30 tablet metFORMIN [Glucophage] 500 mg PO BIDDIAB #30 tablet Thiamine [Vitamin B-1] 100 mg PO QDAY #30 tablet
--- NOTE | 2017-01-07 08:44 | XRay Report ---
The LEFT HIP: The bony architecture is intact without evidence of fracture or dislocation. No significant soft tissue abnormality is seen. IMPRESSION: Normal left hip.
[2017-01-07] MEDS: LOVENOX SUB-Q SCH (09:36)
[2017-01-07] MEDS ORDERED: VITAMIN B-1 PO SCH (10:00)
[2017-01-07] MEDS ORDERED: FOLVITE PO SCH (10:00)
[2017-01-07] MEDS ORDERED: THERAGRAN Tab PO SCH (10:00)
[2017-01-07] MEDS ORDERED: NON-FORMULARY (Ferrous Sulfate 325 MG) PO SCH (10:00)
[2017-01-07] MEDS ORDERED: FEOSOL PO SCH (10:00)
[2017-01-13] MEDS ORDERED: INSULIN DEGLUDEC PO SCH (10:00)
== END 2017-01-07 11:32 | disposition home or self-care (01) | DRG 897 ==
LOC: ED 10:08 → 3A 21:04
PROVIDERS: ADMIT Internal Medicine; ATTEND Internal Medicine
DX: F10.229 Alcohol dependence with intoxication, unspecified (principal); D61.818 Other pancytopenia; F17.210 Nicotine dependence, cigarettes, uncomplicated; E83.42 Hypomagnesemia; K70.30 Alcoholic cirrhosis of liver without ascites; I10 Essential (primary) hypertension; E11.65 Type 2 diabetes mellitus with hyperglycemia; E87.6 Hypokalemia
CPT/HCPCS: 36415; 70450; 71010; 80048; 80053; 80074; 80320; 82140; 82550; 82553; 82962; 83036; 83690; 83735; 83880; 84100; 85007; 85025; 85027; 85610; 85730; 87806; 90686; 90732; 96365; 96368; 96372; 99406; G0480; J1170; J1650; J1815; J1818; J3411; J3475; J3480; J7030